=== PATIENT | female | born 1965 ===

== ENCOUNTER 2024-03-04 10:15 | Inpatient (IN) | payer OTHER ==
[~2024-03-04] VITALS: Ht 66 cm; Wt 74.8 kg
[2024-03-04 11:06] VITALS: BP 103/73
[2024-03-04 11:07] VITALS: BP 108/75
[2024-03-04] MEDS ORDERED: LENVIMA1 EAC3 PO (11:11)
[2024-03-04] MEDS ORDERED: COZAAR25 MG PO (11:11)
[2024-03-04] MEDS ORDERED: LASIX20 MG PO (11:12)
[2024-03-04] MEDS ORDERED: LEVOTHYROXINE150 MC1 PO (11:12)
[2024-03-04] MEDS ORDERED: JARDIANCE25 MG PO (11:12)
[2024-03-04 15:13] LABS: RH POSITIVE
[2024-03-15] MEDS ORDERED: CLINDAMYCIN PHOSPHATE 150 MG/ML (600mg) IV SCH (05:00)
[2024-03-15] MEDS ORDERED: POVIDONE-IODINE 118 ML BOTT TOP ONE (11:45)
[2024-03-15] MEDS ORDERED: METRONIDAZOLE/SODIUM CHLORIDE 500 MG/100 ML PIGGYBACK IV SCH ×2 (11:45→17:00)
[2024-03-15] MEDS ORDERED: THROMBIN,HU/FIBRINOGEN/CALCIUM 10 ML SYRINGE TOP ONE (12:30)
[2024-03-15] MEDS ORDERED: ONDANSETRON HCL 2 MG/ML VIAL IV PRN (13:15)
[2024-03-15] MEDS ORDERED: RINGERS SOLUTION,LACTATED 1,000 ML IV SCH (13:15)
[2024-03-15] MEDS ORDERED: MEPERIDINE HCL 25 MG/ML AMPUL IM PRN (13:30)
[2024-03-15] MEDS ORDERED: SUGAMMADEX SODIUM 200 MG/2 ML VIAL IV ONE (14:15)
[2024-03-15] MEDS ORDERED: MEPERIDINE HCL 25 MG/ML AMPUL IV ONE (14:15)
[2024-03-15] MEDS ORDERED: INSULIN LISPRO 1,000 UNIT/10 ML UNITS SUBCUTANEO PRN (14:45)
[2024-03-15] MEDS ORDERED: DEXTROSE 50 % IN WATER 0.5 G/ML DISP.SYRIN IV PRN (14:45)
[2024-03-15 15:36] LABS: HEMATOCRIT 37.7 % (36.0-45.00); HEMOGLOBIN 12.6 g/dL (12.0-15.00); MEAN CORPUSCULAR HEMOGLOBIN 29.5 pg (27.00-32.0); MEAN CORPUSCULAR HGB CONC 33.5 g/dl (32.0-36.0); PLATELET COUNT 235 K/uL (150-450); RED BLOOD COUNT 4.28 M/uL (4.00-6.00); RED CELL DISTRIBUTION WIDTH 14.4 % (11.5-14.5)
[2024-03-15 16:00] LABS: ALBUMIN 2.4 gm/dL (3.4-5.0); CALCIUM 8.5 mg/dL (8.5-10.1); CREATININE SERUM 0.45 mg/dL (0.55-1.02); GFR 142.61; PHOSPHOROUS 3.7 mg/dL (2.5-4.9); POTASSIUM 4.14 mEq/L (3.5-5.1)
[2024-03-15 16:41] VITALS: BP 108/75; O2SAT 97
[2024-03-15] MEDS ORDERED: GABAPENTIN 300 MG CAPSULE PO SCH (17:00)
[2024-03-15] MEDS ORDERED: ACETAMINOPHEN 500 MG GEL..CAP PO SCH (18:00)
[2024-03-15 20:46] VITALS: BP 124/78
[2024-03-15] MEDS ORDERED: FAMOTIDINE/PF 20 MG/2 ML VIAL IV PUSH SCH (21:00)
[2024-03-16] VITALS: BP 131/84
[2024-03-16] MEDS ORDERED: METOCLOPRAMIDE HCL 10 MG in 0.9 % SODIUM CHLORIDE 50 ML IV SCH (01:00)
[2024-03-16] MEDS ORDERED: LEVOTHYROXINE SODIUM 150 MCG TABLET PO SCH (06:00)
[2024-03-16 06:30] LABS: HEMATOCRIT 36.9 % (36.0-45.00); HEMOGLOBIN 12.7 g/dL (12.0-15.00); MEAN CELL VOLUME 87.9 fL (80.00-100.00); MEAN CORPUSCULAR HEMOGLOBIN 30.2 pg (27.00-32.0); MEAN CORPUSCULAR HGB CONC 34.3 g/dl (32.0-36.0); PLATELET COUNT 251 K/uL (150-450); RED CELL DISTRIBUTION WIDTH 14.3 % (11.5-14.5)
[2024-03-16 06:58] LABS: ALBUMIN 2.3 gm/dL (3.4-5.0); CALCIUM 8.4 mg/dL (8.5-10.1); CREATININE SERUM 0.4 mg/dL (0.55-1.02); GFR 163.37; PHOSPHOROUS 3.4 mg/dL (2.5-4.9); POTASSIUM 4.08 mEq/L (3.5-5.1)
[2024-03-16 08:03] VITALS: BP 106/71
[2024-03-16] MEDS ORDERED: LOSARTAN POTASSIUM 25 MG TABLET PO SCH (09:00)
[2024-03-16] MEDS ORDERED: ENOXAPARIN SODIUM 40 MG/0.4 ML SYRINGE SUBCUTANEO SCH (09:00)
[2024-03-16 15:44] VITALS: BP 99/68; O2SAT 100
[2024-03-16] MEDS ORDERED: POLYETHYLENE GLYCOL 3350 17 GM BLIST.PACK PO SCH (17:00)
[2024-03-16 20:27] VITALS: BP 103/70
[2024-03-17] VITALS: BP 94/65
[2024-03-17 08:06] VITALS: BP 96/61
[2024-03-17] MEDS ORDERED: BENZONATATE 200 MG CAPSULE PO SCH (09:00)
[2024-03-17] MEDS ORDERED: SIMETHICONE 125 MG CAPSULE PO SCH (13:00)
[2024-03-17 15:36] VITALS: BP 92/60; O2SAT 98
[2024-03-17 20:30] VITALS: BP 103/70
[2024-03-17] MEDS ORDERED: MENTHOL/CETYLPYRD CL 1 LOZENGE MM SCH (21:00)
[2024-03-18] VITALS: BP 109/73
[2024-03-18 08:31] VITALS: BP 118/76
[2024-03-18] MEDS ORDERED: MAGNESIUM HYDROXIDE 30 ML BLIST.PACK PO NR (11:30)
[2024-03-18 16:34] VITALS: BP 95/64
[2024-03-19 01:42] VITALS: BP 95/56
[2024-03-19 04:28] LABS: HEMATOCRIT 32.7 % (36.0-45.00); MEAN CELL VOLUME 87.2 fL (80.00-100.00); MEAN CORPUSCULAR HGB CONC 34.4 g/dl (32.0-36.0); PLATELET COUNT 285 K/uL (150-450); RED BLOOD COUNT 3.75 M/uL (4.00-6.00); RED CELL DISTRIBUTION WIDTH 15.1 % (11.5-14.5)
[2024-03-19 04:51] LABS: HEMOGLOBIN 11.2 g/dL (12.0-15.00); MEAN CORPUSCULAR HEMOGLOBIN 29.8 pg (27.00-32.0)
[2024-03-19 04:54] LABS: BILIRUBIN TOTAL 0.62 mg/dL (0.3-1.2); CALCIUM 8.1 mg/dL (8.5-10.1); CREATININE SERUM 0.37 mg/dL (0.55-1.02); GFR 178.75; GLOBULINA 2.9 G/DL (2.4-3.5); POTASSIUM 4.02 mEq/L (3.5-5.1); TOTAL PROTEIN 4.9 gm/dL (6.4-8.2)
[2024-03-19 08:37] VITALS: BP 100/60
== END 2024-03-19 11:01 | disposition home or self-care (01) | DRG 828 ==
LOC: O/R 03-15 06:35 → SURH 03-15 07:00 → OB/GYN 03-15 15:57
PROVIDERS: Internal Medicine; Surgery; ADMIT Obstetrics & Gynecology Gynecologic Oncology; ATTEND Obstetrics & Gynecology Gynecologic Oncology
PROC: 0UT20ZZ Resection of Bilateral Ovaries, Open Approach (ICD-10-PCS; 2024-03-15)
PROC: 0UT70ZZ Resection of Bilateral Fallopian Tubes, Open Approach (ICD-10-PCS; 2024-03-15)
PROC: 07BC0ZZ Excision of Pelvis Lymphatic, Open Approach (ICD-10-PCS; 2024-03-15)
PROC: 07BD0ZZ Excision of Aortic Lymphatic, Open Approach (ICD-10-PCS; 2024-03-15)
PROC: 0DT80ZZ Resection of Small Intestine, Open Approach (ICD-10-PCS; 2024-03-15)
PROC: 0DTK0ZZ Resection of Ascending Colon, Open Approach (ICD-10-PCS; 2024-03-15)
PROC: 0DBB0ZZ Excision of Ileum, Open Approach (ICD-10-PCS; 2024-03-15)
PROC: 0DBW0ZZ Excision of Peritoneum, Open Approach (ICD-10-PCS; principal; 2024-03-15 07:00)
PROC: 0UT90ZZ Resection of Uterus, Open Approach (ICD-10-PCS; 2024-03-15 07:00)
DX: C80.1 Malignant (primary) neoplasm, unspecified (principal); C55 Malignant neoplasm of uterus, part unspecified; C77.5 Secondary and unspecified malignant neoplasm of intrapelvic lymph nodes; Z20.822 Contact with and (suspected) exposure to COVID-19

== ENCOUNTER 2024-03-15 06:05 | Outpatient (CLI) | payer OTHER ==
[~2024-03-15 06:05] MED LIST: COZAAR25 MG PO; JARDIANCE25 MG PO; LASIX20 MG PO; LENVIMA1 EAC3 PO; LEVOTHYROXINE150 MC1 PO
[2024-03-15 07:11] LABS: INR 1.1; PARTIAL THROMBOPLASTIN TIME 27.1 SECONDS (22.0-34.0); PROTHROMBIN TIME 11.9 SECONDS (9.0-11.5)
== END 2024-03-15 06:06 | disposition home or self-care (01) ==
LOC: LAB 06:05
PROVIDERS: ATTEND Anesthesiology
DX: D68.9 Coagulation defect, unspecified (principal)